=== PATIENT | male | born 1950 | race Asian ===

== ENCOUNTER 2018-04-06 08:09 | Inpatient (IN) | payer OTHER, MEDICARE ==
[~2018-04-06] VITALS: Ht 167.6 cm; Wt 67.3 kg
[2018-04-06] VITALS (9 sets, daily range): BP systolic 67–114; BP diastolic 17–59
[~2018-04-06 08:09] MED LIST: ACET-1757 PO; AMLO-150 PO; CALC0.5C9 PO; CALC667T PO; CARV6.2512 PO; CEFT2FRO2 IV; DAPT500V6 IV; ERGO500017 PO; ERGO500047 PO; GABA-826 PO; GLYB5TAB3 PO; GUAI5LIQ3 PO; HYDR20VI3 IV; INSU100C5 SQ-INSULIN; INSU100V13 SC; LABE5VIA13 IV; LISI-170 PO; LOPE2CAP PO; LOSA25TA6 PO; LOSA50TA7 PO; ONDA4SOL IV; OXYC5CAP2 PO; PANT40TA5 PO; POLY17PO5 PO; POTASSIUM ACETATE PO; SEVE800T7 PO; SODI650T PO; TRAM50TA2 PO; VANC1VIA3 IV; VERA180C2 PO; [UNRECOGNIZED DRUG - CODE] SC
[2018-04-06] MEDS ORDERED: PANTOPRAZOLE 80 MG in SODIUM CHLORIDE 0.9% 50 ML IVPB ONE (08:48)
[2018-04-06] MEDS ORDERED: SODIUM CHLORIDE FLUSH 10ML SYR IVF ONE (09:00)
[2018-04-06 09:17] LABS: ALANINE AMINOTRANSFERASE 16 U/L (12-78); ALBUMIN 1.9 g/dL (3.4-5.0); ANION GAP 8 mmol/L (5-15); CALCIUM 7.2 mg/dL (8.5-10.1); CHLORIDE 99 mmol/L (98-107)
[2018-04-06 09:19] LABS: MEAN CORPUSCULAR HEMOGLOBIN 30.3 pg (27.5-34.5); MEAN CORPUSCULAR HGB CONC 33.8 g/dL (33.2-36.2); MEAN CORPUSCULAR VOLUME 89.5 fL (81-97); PLATELET COUNT 241 x10^3/uL (130-400); RED BLOOD COUNT 1.93 x10^6/uL (4.38-5.82); RED CELL DISTRIBUTION WIDTH 16.8 % (9.4-14.8)
[2018-04-06 09:20] LABS: ALKALINE PHOSPHATASE 72 U/L (45-117); BILIRUBIN,TOTAL 0.2 mg/dL (0.2-1.0); CREATININE 5.77 mg/dL (0.7-1.3); TOTAL PROTEIN 5.2 g/dL (6.4-8.2)
[2018-04-06 09:29] LABS: INTERNATIONAL NORMALIZED RATIO 1.01 (0.93-1.1); PROTHROMBIN TIME 10.7 Seconds (9.6-11.5)
[2018-04-06 09:30] LABS: BASOPHILS # (AUTO) 0.03 x10^3/uL (0-0.1); BASOPHILS % (AUTO) 0 % (0-1); EOSINOPHILS # (AUTO) 0.08 x10^3/uL (0-0.4); EOSINOPHILS % (AUTO) 1 % (1-7); LYMPHOCYTES # (AUTO) 1.34 x10^3/uL (1-3.4); LYMPHOCYTES % (AUTO) 17 % (22-44); MD SCAN; MONOCYTES # (AUTO) 0.53 x10^3/uL (0.2-0.8); MONOCYTES % (AUTO) 7 % (2-9); NEUTROPHILS # (AUTO) 6.17 x10^3/uL (1.8-6.8); NEUTROPHILS % (AUTO) 76 % (42-75)
[2018-04-06] MEDS ORDERED: LACTATED RINGERS 500 ML IVBOLUS ONE (09:30)
[2018-04-06] MEDS ORDERED: CINA90TA PO (10:27)
[2018-04-06] MEDS ORDERED: CALC400T40 PO (10:28)
[2018-04-06] MEDS ORDERED: OMNIPAQUE 350 MG/ML, 100ML BOTTLE ONE (10:49)
[2018-04-06] MEDS ORDERED: ACETAMINOPHEN 325 MG TABLET PO PRN (11:30)
[2018-04-06] MEDS ORDERED: ENALAPRILAT 1.25 MG/ML, 2ML IVPush PRN (11:30)
[2018-04-06] MEDS ORDERED: ONDANSETRON 2MG/ML, 2ML IVPush PRN (11:30)
[2018-04-06] MEDS ORDERED: ONDANSETRON ODT 4 MG PO PRN (11:30)
[2018-04-06] MEDS ORDERED: LIDOCAINE-MPF 1%, 5ML ONE (11:32)
[2018-04-06] MEDS ORDERED: FENTANYL PF 100 MCG/2ML ONE (11:40)
[2018-04-06] MEDS ORDERED: MIDAZOLAM 1 MG/ML, 5ML ONE (11:40)
[2018-04-06] MEDS ORDERED: FLUMAZENIL 0.1 MG/1 ML, 5ML ONE (11:58)
[2018-04-06] MEDS ORDERED: NALOXONE 1 MG/ML, 2ML ONE (11:58)
[2018-04-06] MEDS ORDERED: VISIPAQUE 320MG/ML, 50ML BOTTLE ONE (14:13)
[2018-04-06] MEDS ORDERED: VISIPAQUE 320 MG/ML, 150ML BOTTLE ONE (14:13)
[2018-04-06] MEDS: SODIUM CHLORIDE 0.9% 1,000 ML IV SCH ×2 (14:52→23:07)
[2018-04-06] MEDS: INSULIN REGULAR 100 UNITS/ML, 3ML VIAL SQ-INSULIN SCH ×2 (16:00→20:59)
[2018-04-06 16:32] LABS: BASOPHILS # (AUTO) 0.02 x10^3/uL (0-0.1); BASOPHILS % (AUTO) 0 % (0-1); EOSINOPHILS # (AUTO) 0.17 x10^3/uL (0-0.4); EOSINOPHILS % (AUTO) 3 % (1-7); LYMPHOCYTES # (AUTO) 1.75 x10^3/uL (1-3.4); LYMPHOCYTES % (AUTO) 25 % (22-44); MD SCAN; MEAN CORPUSCULAR HEMOGLOBIN 31.9 pg (27.5-34.5); MEAN CORPUSCULAR HGB CONC 34.6 g/dL (33.2-36.2); MEAN CORPUSCULAR VOLUME 92.2 fL (81-97); MEAN PLATELET VOLUME 7.3 fL (7.4-10.4); MONOCYTES # (AUTO) 0.79 x10^3/uL (0.2-0.8); MONOCYTES % (AUTO) 12 % (2-9); NEUTROPHILS # (AUTO) 4.19 x10^3/uL (1.8-6.8); NEUTROPHILS % (AUTO) 61 % (42-75); PLATELET COUNT 82 x10^3/uL (130-400); RED BLOOD COUNT 1.81 x10^6/uL (4.38-5.82); RED CELL DISTRIBUTION WIDTH 13.8 % (9.4-14.8)
[2018-04-06] MEDS ORDERED: DEXTROSE 50%, 50ML SYRINGE IVPush PRN (17:00)
[2018-04-06] MEDS ORDERED: DEXTROSE 4 GM TAB.CHEW PO PRN (17:00)
[2018-04-06] MEDS ORDERED: GLUCAGON 1 MG IM PRN (17:00)
[2018-04-06] MEDS ORDERED: SODIUM CHLORIDE 0.9%, 500ML IVBOLUS ONE ×2 (17:30→19:00)
[2018-04-06] MEDS ORDERED: PHENYLEPHRINE 20 MG in SODIUM CHLORIDE 0.9% 248 ML IV PRN (19:00)
[2018-04-06] MEDS: SODIUM CHLORIDE FLUSH 10ML SYR IVF SCH (20:54)
[2018-04-07] VITALS (7 sets, daily range): BP systolic 148–182; BP diastolic 45–99
[2018-04-07] MEDS: SODIUM CHLORIDE 0.9% 1,000 ML IV SCH ×2 (05:10→17:28)
[2018-04-07] MEDS: INSULIN REGULAR 100 UNITS/ML, 3ML VIAL SQ-INSULIN SCH ×4 (07:00→21:00)
[2018-04-07 07:28] LABS: ALANINE AMINOTRANSFERASE 10 U/L (12-78); ALBUMIN 1.5 g/dL (3.4-5.0); ANION GAP 9 mmol/L (5-15); CALCIUM 6.8 mg/dL (8.5-10.1); CHLORIDE 107 mmol/L (98-107); CREATININE 6.63 mg/dL (0.7-1.3)
[2018-04-07] MEDS ORDERED: PANTOPROZOLE 40MG TABLET PO SCH (07:30)
[2018-04-07 07:31] LABS: ALKALINE PHOSPHATASE 49 U/L (45-117); BILIRUBIN,TOTAL 0.3 mg/dL (0.2-1.0); TOTAL PROTEIN 3.9 g/dL (6.4-8.2)
[2018-04-07 07:38] LABS: MEAN CORPUSCULAR HGB CONC 35.1 g/dL (33.2-36.2); MEAN CORPUSCULAR VOLUME 88.4 fL (81-97); MEAN PLATELET VOLUME 8.6 fL (7.4-10.4); PLATELET COUNT 73 x10^3/uL (130-400); RED BLOOD COUNT 2.54 x10^6/uL (4.38-5.82); RED CELL DISTRIBUTION WIDTH 15.7 % (9.4-14.8)
[2018-04-07 07:40] LABS: HEMOGRAM NOTE RECHECKED
[2018-04-07 07:45] LABS: BASOPHILS # (AUTO) 0.05 x10^3/uL (0-0.1); BASOPHILS % (AUTO) 1 % (0-1); EOSINOPHILS % (AUTO) 1 % (1-7); LYMPHOCYTES % (AUTO) 16 % (22-44); MD SCAN; MONOCYTES # (AUTO) 1.08 x10^3/uL (0.2-0.8); MONOCYTES % (AUTO) 11 % (2-9); NEUTROPHILS # (AUTO) 7.46 x10^3/uL (1.8-6.8); NEUTROPHILS % (AUTO) 73 % (42-75)
[2018-04-07] MEDS: SODIUM CHLORIDE FLUSH 10ML SYR IVF SCH ×2 (09:00→21:00)
[2018-04-07] MEDS ORDERED: PANTOPRAZOLE 40 MG IV IVPush SCH (09:00)
[2018-04-07] MEDS ORDERED: MAGNESIUM SULFATE PMX 2GM/50ML 50 ML IV ONE (13:30)
[2018-04-08] VITALS (8 sets, daily range): BP systolic 149–184; BP diastolic 47–65
[2018-04-08 03:27] LABS: ALBUMIN 1.6 g/dL (3.4-5.0); ANION GAP 7 mmol/L (5-15); CALCIUM 7.4 mg/dL (8.5-10.1); CHLORIDE 105 mmol/L (98-107); CREATININE 4.63 mg/dL (0.7-1.3)
[2018-04-08] MEDS: INSULIN REGULAR 100 UNITS/ML, 3ML VIAL SQ-INSULIN SCH ×4 (06:58→20:16)
[2018-04-08] MEDS ORDERED: MAGNESIUM SULFATE 1 GM in SODIUM CHLORIDE 0.9% 50 ML IV ONE (07:30)
[2018-04-08] MEDS: SODIUM CHLORIDE FLUSH 10ML SYR IVF SCH ×2 (09:12→20:17)
[2018-04-08] MEDS: METOPROLOL TARTRATE 25 MG TABLET PO SCH ×2 (09:12→17:43)
[2018-04-08] MEDS: PANTOPRAZOLE 40 MG IV IVPush SCH ×2 (09:13→20:17)
[2018-04-09 01:18] VITALS: BP 134/71
[2018-04-09 01:21] VITALS: BP 135/79
[2018-04-09] MEDS: METOPROLOL TARTRATE 25 MG TABLET PO SCH (05:45)
[2018-04-09 06:10] VITALS: BP 143/66
[2018-04-09] MEDS: INSULIN REGULAR 100 UNITS/ML, 3ML VIAL SQ-INSULIN SCH ×3 (07:00→16:00)
[2018-04-09] MEDS: PANTOPRAZOLE 40 MG IV IVPush SCH (08:30)
[2018-04-09] MEDS: SODIUM CHLORIDE FLUSH 10ML SYR IVF SCH (08:31)
[2018-04-09] MEDS ORDERED: MIDAZOLAM 1 MG/ML, 2ML ONE (09:37)
[2018-04-09] MEDS ORDERED: FENTANYL PF 100 MCG/2ML ONE (09:37)
[2018-04-09] MEDS ORDERED: PROPOFOL 50 ML ONE (09:38)
[2018-04-09] MEDS ORDERED: HALOPERIDOL 5 MG/ML IV PRN (11:00)
[2018-04-09] MEDS ORDERED: PROMETHAZINE 25 MG/ML, 1ML IV PRN (11:00)
[2018-04-09] MEDS ORDERED: MEPERIDINE/PF 25MG/0.5ML IVPush PRN (11:00)
[2018-04-09] MEDS ORDERED: OXYcodone 5 MG/5 ML ORAL.SOL UDC PO PRN (11:00)
[2018-04-09] MEDS ORDERED: FENTANYL PF 100 MCG/2ML IV PRN (11:00)
[2018-04-09] MEDS ORDERED: HYDROmorphone 2 MG/ML, 1ML IVPush PRN (11:00)
[2018-04-09] MEDS ORDERED: hydrALAzine 20 MG/ML, 1ML IV PRN (11:00)
[2018-04-09] MEDS ORDERED: ACETAMINOPHEN 325 MG TABLET PO PRN (11:00)
[2018-04-09] MEDS ORDERED: PANT40TA5 PO (12:08)
[2018-04-09 15:51] VITALS: BP 135/62
== END 2018-04-09 17:27 | disposition home or self-care (01) | DRG 270 ==
LOC: ED 10:22 → EDIP 11:28 → CCU 14:26 → 3NE 04-08 11:09
PROVIDERS: ADMIT Family Medicine; ATTEND Family Medicine
PROC: 04L33DZ Occlusion of Hepatic Artery with Intraluminal Device, Percutaneous Approach (ICD-10-PCS; 2018-04-06)
PROC: 04L53DZ Occlusion of Superior Mesenteric Artery with Intraluminal Device, Percutaneous Approach (ICD-10-PCS; 2018-04-06)
PROC: 30233N1 Transfusion of Nonautologous Red Blood Cells into Peripheral Vein, Percutaneous Approach (ICD-10-PCS; 2018-04-06)
PROC: B31P1ZZ Fluoroscopy of Thoraco-Abdominal Aorta using Low Osmolar Contrast (ICD-10-PCS; 2018-04-06)
PROC: 05H533Z Insertion of Infusion Device into Right Subclavian Vein, Percutaneous Approach (ICD-10-PCS; 2018-04-07)
PROC: B546ZZA Ultrasonography of Right Subclavian Vein, Guidance (ICD-10-PCS; 2018-04-07)
PROC: 5A1D70Z Performance of Urinary Filtration, Intermittent, Less than 6 Hours Per Day (ICD-10-PCS; 2018-04-07)
PROC: 5A1D70Z Performance of Urinary Filtration, Intermittent, Less than 6 Hours Per Day (ICD-10-PCS; 2018-04-08)
PROC: 0DB68ZX Excision of Stomach, Via Natural or Artificial Opening Endoscopic, Diagnostic (ICD-10-PCS; principal; 2018-04-09 10:00)
DX: R58 Hemorrhage, not elsewhere classified (principal); K29.81 Duodenitis with bleeding; N18.6 End stage renal disease; R57.8 Other shock; K25.4 Chronic or unspecified gastric ulcer with hemorrhage; D62 Acute posthemorrhagic anemia; I12.0 Hypertensive chronic kidney disease with stage 5 chronic kidney disease or end stage renal disease; E11.42 Type 2 diabetes mellitus with diabetic polyneuropathy; E11.22 Type 2 diabetes mellitus with diabetic chronic kidney disease; E78.5 Hyperlipidemia, unspecified; E87.5 Hyperkalemia; Z87.891 Personal history of nicotine dependence; I95.3 Hypotension of hemodialysis; N25.0 Renal osteodystrophy; Z99.2 Dependence on renal dialysis; Z88.6 Allergy status to analgesic agent; Z88.4 Allergy status to anesthetic agent; Z88.8 Allergy status to other drugs, medicaments and biological substances
CPT/HCPCS: 36246; 36415; 36430; 36569; 37244; 71045; 74174; 75726; 76937; 77001; 80053; 80069; 82962; 83605; 83735; 84100; 85014; 85018; 85025; 85610; 85730; 86705; 86706; 86850; 86900; 86923; 87081; 87340; 88305; 93005; 96365; 99156; 99157; 99292; G0378; J1815; J2250; J2704; J3010; J3475; J7120; Q9967; C1751; C1760; C1769; C9113; J2310; J2370; J7030; J7040; J7050; P9016

== ENCOUNTER 2019-07-15 20:34 | Inpatient (IN) | payer MEDICARE, OTHER ==
[~2019-07-15] VITALS: Ht 167.6 cm; Wt 54.5 kg
[~2019-07-15 20:34] MED LIST changes: -ACET-1757 PO; +ACET-2065 PO; +CALC400T40 PO; -CALC667T PO; +CALC667T4 PO; +CINA90TA PO; +LOSA25TA25 PO; -LOSA25TA6 PO; +LOSA50TA14 PO; -LOSA50TA7 PO
--- NOTE | 2019-07-15 20:44 | NUR ---
: josse [phone] H, C son: [phone]
[2019-07-15] MEDS ORDERED: SEVE800T8 PO (20:49)
[2019-07-15] MEDS ORDERED: ERGO500017 PO (20:49)
[2019-07-15] MEDS ORDERED: PANT40TA5 PO (20:49)
[2019-07-15] MEDS ORDERED: AMLO10TA8 PO (20:49)
[2019-07-15] MEDS ORDERED: GLYB5TAB3 PO (20:49)
[2019-07-15] MEDS ORDERED: PROPOFOL 100 ML IV ONE (20:49)
[2019-07-15] MEDS ORDERED: GABA300C10 PO (20:49)
[2019-07-15] MEDS ORDERED: PROPOFOL 10 MG/ML, 20ML ONE (20:49)
--- NOTE | 2019-07-15 21:08 | NUR ---
SUMMARY NOTE: ON ARRIVAL PT. ON CPAP. O2 SAT REMAINED IN THE 80'S. DR. GOODSON IN TO INTUBATE. 20MG ETOMIDATE FOLLOWED BY 50MG ANTELMO ADMIN AT 2052. INTUBATED WITH 8.0 AT 2053 24 AT THE LIP. VENT SETTINGS A/C RATE 20, TV 500, PEEP 10, 100%. EQUAL BREATH SOUNDS BILAT. CO2 24. EKG DONE ON ARRIVAL AND ALL MONITORS WERE PLACED. PT. HAD EJ TO RIGHT NECK ON ARRIVAL. NITRO PASTE IN PLACE TO LEFT CHEST ON ARRIVAL.
[2019-07-15] MEDS ORDERED: ETOMIDATE 20 MG/10 ML IVPush ONE (21:30)
[2019-07-15] MEDS ORDERED: PROPOFOL 100 ML IV PRN (21:30)
[2019-07-15] MEDS ORDERED: ROCURONIUM 10 MG/ML,10ML IVPush ONE (21:30)
--- NOTE | 2019-07-15 21:39 | NUR ---
X-RAY HAS BEEN COMPLETED. LOPEZ IN PLACE. PT. LIKELY ANURIC/ NO DRAINAGE WHEN PLACING LOPEZ. 2ND IV ESTABLISHED. 1 SET OF BLOOD CULTURES AND LABS DRAWN.
--- NOTE | 2019-07-15 21:41 | NUR ---
VERO TORREZ AND NEISHA ANTONIO ASSISTING IN PT. CARE.
[2019-07-15] MEDS ORDERED: ACETAMINOPHEN 500 MG TABLET PO PRN (22:00)
[2019-07-15] MEDS ORDERED: PIPERACILLIN/TAZO/PMX 3.375GM 50 ML IVPB ONE (22:00)
[2019-07-15] MEDS ORDERED: VANCOMYCIN PER PHARMACY MC ONE (22:00)
[2019-07-15] MEDS ORDERED: PIPERACILLIN/TAZO/PMX 3.375GM 50 ML ONE (22:04)
[2019-07-15] MEDS ORDERED: ACETAMINOPHEN 500 MG TABLET ONE (22:04)
[2019-07-15 22:20] LABS: ALANINE AMINOTRANSFERASE 79 U/L (12-78); ALBUMIN 3.2 g/dL (3.4-5.0); ANION GAP 15 mmol/L (5-15); CALCIUM 8.8 mg/dL (8.5-10.1); CHLORIDE 95 mmol/L (98-107)
[2019-07-15 22:21] LABS: BASOPHILS % (AUTO) 0 % (0-1); EOSINOPHILS % (AUTO) 0 % (1-7); LYMPHOCYTES % (AUTO) 8 % (22-44); MD NO; MEAN CORPUSCULAR HEMOGLOBIN 27.1 pg (27.5-34.5); MEAN CORPUSCULAR HGB CONC 32.5 g/dL (33.2-36.2); MEAN CORPUSCULAR VOLUME 83.5 fL (81-97); MEAN PLATELET VOLUME 7.7 fL (7.4-10.4); MONOCYTES % (AUTO) 5 % (2-9); NEUTROPHILS # (AUTO) 6.85 x10^3/uL (1.8-6.8); NEUTROPHILS % (AUTO) 87 % (42-75); PLATELET COUNT 219 x10^3/uL (130-400); RED BLOOD COUNT 4.27 x10^6/uL (4.38-5.82); RED CELL DISTRIBUTION WIDTH 16.2 % (9.4-14.8)
[2019-07-15 22:24] LABS: ALKALINE PHOSPHATASE 71 U/L (45-117); BILIRUBIN,TOTAL 0.3 mg/dL (0.2-1.0); TOTAL PROTEIN 8.6 g/dL (6.4-8.2)
--- NOTE | 2019-07-15 22:25 | NUR ---
UNABLE TO OBTAIN 2ND SET OF BLOOD CULTURES AFTER MULTIPLE ATTEMPTS. LAB AT NOW FOR BLOOD DRAW.
--- NOTE | 2019-07-15 22:26 | NUR ---
LATE ENTRY: WHEN PT. B/P FOUND TO BE MUCH LOWER THAN PREVIOUS READING NITRO PASTE WAS WIPED AWAY FROM SKIN.
[2019-07-15] MEDS ORDERED: VANCOMYCIN 1,200 MG in SODIUM CHLORIDE 0.9% 250 ML IV ONE (22:30)
--- NOTE | 2019-07-15 22:32 | NUR ---
LAB COMPLETED 2ND SET OF BLOOD CULTURES.
--- NOTE | 2019-07-15 22:33 | NUR ---
, Belinda, called and requested to be updated at home phone number [phone].
[2019-07-15] MEDS ORDERED: MIDAZOLAM HCL 50 MG in SODIUM CHLORIDE 0.9% 40 ML IV PRN (22:36)
[2019-07-15] MEDS ORDERED: SODIUM CHLORIDE 0.9% 1,000ML IVBOLUS ONE (23:00)
--- NOTE | 2019-07-15 23:05 | NUR ---
PER DOMINGO IN PHARMACY OK TO RUN DINAH TOGETHER.
--- NOTE | 2019-07-15 23:20 | NUR ---
UNR AT BS TO EVAL PT. FOR ADMISSION.
--- NOTE | 2019-07-15 23:49 | NUR ---
DISCUSSED B/P WITH DR. GOODSON. PT. IS NOW OFF PROPOFOL AND ON VERSED DRIP ONLY. FOR NOW WILL CONTINUE TO MONITOR B/P FOR IMPROVMENT.
[2019-07-16] MEDS ORDERED: HYDROmorphone 2 MG/ML, 1ML IVPush PRN
[2019-07-16] MEDS ORDERED: MIDAZOLAM 1 MG/ML, 2ML IVPush ONE
[2019-07-16] MEDS ORDERED: VANCOMYCIN PER PHARMACY MC PRN
[2019-07-16] MEDS ORDERED: ONDANSETRON 2MG/ML, 2ML IVPush PRN
[2019-07-16] MEDS ORDERED: BISACODYL 10 MG SUPP PR PRN
--- NOTE | 2019-07-16 00:14 | NUR ---
B/P IMPROVED CHARTED. VENT SETTING ARE A/C RATE 20, PEEP 10, TV 500, O2 70%. ALL SAFETY MEASURES OBSERVED.
[2019-07-16] MEDS: PIPERACILLIN/TAZO/PMX 3.375GM 50 ML IV SCH ×2 (00:16→05:44)
[2019-07-16] MEDS ORDERED: GLUCAGON 1 MG IM PRN (01:00)
[2019-07-16] MEDS ORDERED: DEXTROSE 4 GM TAB.CHEW PO PRN (01:00)
[2019-07-16] MEDS ORDERED: DEXTROSE 50%, 50ML SYRINGE IVPush PRN (01:00)
[2019-07-16] MEDS ORDERED: HEPARIN 5,000 UNITS/ML, 1ML ONE (01:02)
[2019-07-16] MEDS: INSULIN LISPRO 100 UNITS/ML, PEN SQ-INSULIN SCH ×5 (01:12→21:00)
[2019-07-16] MEDS: HEPARIN 5,000 UNITS/ML, 1ML SQ SCH ×3 (01:12→16:31)
[2019-07-16 02:28] LABS: BASOPHILS # (AUTO) 0.02 x10^3/uL (0-0.1); BASOPHILS % (AUTO) 1 % (0-1); EOSINOPHILS % (AUTO) 0 % (1-7); LYMPHOCYTES # (AUTO) 0.82 x10^3/uL (1-3.4); LYMPHOCYTES % (AUTO) 15 % (22-44); MD NO; MEAN CORPUSCULAR HEMOGLOBIN 27.4 pg (27.5-34.5); MEAN CORPUSCULAR HGB CONC 33.1 g/dL (33.2-36.2); MEAN CORPUSCULAR VOLUME 82.8 fL (81-97); MEAN PLATELET VOLUME 7.3 fL (7.4-10.4); MONOCYTES # (AUTO) 0.37 x10^3/uL (0.2-0.8); MONOCYTES % (AUTO) 7 % (2-9); NEUTROPHILS # (AUTO) 4.21 x10^3/uL (1.8-6.8); NEUTROPHILS % (AUTO) 78 % (42-75); PLATELET COUNT 181 x10^3/uL (130-400); RED BLOOD COUNT 4.05 x10^6/uL (4.38-5.82); RED CELL DISTRIBUTION WIDTH 15.9 % (9.4-14.8)
[2019-07-16 02:34] LABS: ALANINE AMINOTRANSFERASE 86 U/L (12-78); ALBUMIN 2.8 g/dL (3.4-5.0); ANION GAP 9 mmol/L (5-15); CALCIUM 8.1 mg/dL (8.5-10.1); CHLORIDE 100 mmol/L (98-107)
[2019-07-16 02:36] LABS: ALKALINE PHOSPHATASE 58 U/L (45-117); BILIRUBIN,TOTAL 0.3 mg/dL (0.2-1.0); TOTAL PROTEIN 7.7 g/dL (6.4-8.2)
--- NOTE | 2019-07-16 03:42 | NUR ---
VS UPDATED. ALL SAFETY MEASURES OBSERVED. VENT SETTING REMAIN THE SAME PREVIOUSLY CHARTED. SEDATION MEDS PER eMAR.
[2019-07-16] MEDS ORDERED: PHARMACOKINETIC MONITORING MC PRN (04:30)
[2019-07-16] MEDS ORDERED: PIPERACILLIN/TAZO/PMX 3.375GM 50 ML ONE (05:33)
[2019-07-16] MEDS ORDERED: PROPOFOL 100 ML IV PRN (05:34)
[2019-07-16] MEDS ORDERED: LIDOCAINE-MPF 1%, 2ML ENDO PRN (06:00)
--- NOTE | 2019-07-16 06:10 | NUR ---
PHONE CALL MADE TO DR. MCCLELLAND PT. HAS NOT HAD ANY URINE OUTPUT SINCE ARRIVAL; ALSO UPDATED DR. MCCLELLAND OF FSBS OF 66. NO NEW ORDERS AT THIS TIME.
--- NOTE | 2019-07-16 06:27 | NUR ---
REPORT TO VERO BLACKMON. FLOOR READY FOR PT. TRANPORT. RESP AWARE.
[2019-07-16] MEDS: D5%-0.9% NACL 1,000 ML IV SCH (06:30)
[2019-07-16] MEDS: SEVELAMER CARBONATE 800MG TAB PO SCH ×3 (07:56→21:00)
[2019-07-16] MEDS: SODIUM CHLORIDE FLUSH 10ML SYR IVF SCH ×2 (07:57→21:16)
[2019-07-16] MEDS ORDERED: FAMOTIDINE 20 MG/2 ML IVPush SCH (09:00)
[2019-07-16] MEDS: NOREPINEPHRINE 8 MG in SODIUM CHLORIDE 0.9% 242 ML IV PRN ×2 (10:41→22:55)
[2019-07-16 12:16] LABS: CLOSTRIDIUM DIFFICILE ANTIGEN NEGATIVE; CLOSTRIDIUM DIFFICILE TOXIN NEGATIVE (Negative)
[2019-07-16] MEDS: PIPERACILLIN/TAZO/PMX 2.25GM 50 ML IVPB SCH (16:30)
[2019-07-16] MEDS: FENTANYL PF 100 MCG/2ML IVPush PRN (16:31)
[2019-07-16] MEDS: CINACALCET 30 MG TABLET PO SCH (17:21)
[2019-07-16] MEDS: MIDAZOLAM HCL 50 MG in SODIUM CHLORIDE 0.9% 40 ML IV PRN (17:22)
[2019-07-16] MEDS ORDERED: AZITHROMYCIN 500 MG in SODIUM CHLORIDE 0.9% 250 ML IV ONE (19:00)
[2019-07-16 19:02] LABS: VANCOMYCIN,RANDOM 15.8 mcg/mL
[2019-07-16] MEDS ORDERED: VANCOMYCIN 900 MG in SODIUM CHLORIDE 0.9% 100 ML IV ONE (19:30)
[2019-07-16] MEDS: HYDROXYCHLOROQUINE 200 MG TABLET PO SCH (21:00)
[2019-07-16] MEDS: ACETAMINOPHEN 650 MG SUPP PR PRN (21:28)
[2019-07-16 22:50] VITALS: BP 109/55
[2019-07-16 22:54] VITALS: BP 109/55
[2019-07-17] MEDS: PIPERACILLIN/TAZO/PMX 2.25GM 50 ML IVPB SCH ×4 (01:09→23:42)
[2019-07-17] MEDS: HEPARIN 5,000 UNITS/ML, 1ML SQ SCH ×4 (01:09→23:43)
[2019-07-17] MEDS: MIDAZOLAM HCL 50 MG in SODIUM CHLORIDE 0.9% 40 ML IV PRN ×3 (01:23→17:36)
[2019-07-17] MEDS: INSULIN LISPRO 100 UNITS/ML, PEN SQ-INSULIN SCH ×5 (03:00→21:00)
[2019-07-17] MEDS: D5%-0.9% NACL 1,000 ML IV SCH (03:51)
[2019-07-17 04:33] VITALS: BP 116/79
[2019-07-17] MEDS: LORazepam 2 MG/ML, 1ML IVPush PRN (05:39)
[2019-07-17 08:10] LABS: MEAN CORPUSCULAR HEMOGLOBIN 26.7 pg (27.5-34.5); MEAN CORPUSCULAR VOLUME 83.3 fL (81-97); MEAN PLATELET VOLUME 7.6 fL (7.4-10.4); PLATELET COUNT 188 x10^3/uL (130-400); RED BLOOD COUNT 3.77 x10^6/uL (4.38-5.82); RED CELL DISTRIBUTION WIDTH 16.2 % (9.4-14.8)
[2019-07-17 08:16] LABS: ANION GAP 11 mmol/L (5-15); CALCIUM 8.1 mg/dL (8.5-10.1); CHLORIDE 103 mmol/L (98-107)
[2019-07-17 08:20] LABS: CREATININE 9.09 mg/dL (0.7-1.3)
[2019-07-17 08:24] LABS: ALANINE AMINOTRANSFERASE 347 U/L (12-78); ALBUMIN 2.4 g/dL (3.4-5.0)
[2019-07-17 08:26] LABS: ALKALINE PHOSPHATASE 47 U/L (45-117); BILIRUBIN,TOTAL 0.5 mg/dL (0.2-1.0); TOTAL PROTEIN 6.7 g/dL (6.4-8.2)
[2019-07-17 08:28] LABS: MD SCAN
[2019-07-17 08:29] LABS: BASOPHILS # (AUTO) 0.01 x10^3/uL (0-0.1); BASOPHILS % (AUTO) 0 % (0-1); EOSINOPHILS # (AUTO) 0.03 x10^3/uL (0-0.4); EOSINOPHILS % (AUTO) 0 % (1-7); LYMPHOCYTES # (AUTO) 0.76 x10^3/uL (1-3.4); LYMPHOCYTES % (AUTO) 12 % (22-44); MONOCYTES # (AUTO) 0.42 x10^3/uL (0.2-0.8); MONOCYTES % (AUTO) 7 % (2-9); NEUTROPHILS # (AUTO) 5.27 x10^3/uL (1.8-6.8); NEUTROPHILS % (AUTO) 81 % (42-75)
[2019-07-17] MEDS: FAMOTIDINE 20 MG/2 ML IVPush SCH (08:29)
[2019-07-17] MEDS: SODIUM CHLORIDE FLUSH 10ML SYR IVF SCH ×2 (08:29→21:00)
[2019-07-17] MEDS: SEVELAMER CARBONATE 800MG TAB PO SCH ×3 (08:29→21:00)
[2019-07-17] MEDS: HYDROXYCHLOROQUINE 200 MG TABLET PO SCH (09:40)
--- NOTE | 2019-07-17 10:31 | NUR ---
TF GOAL when ordered: Nepro @ 50ml/hr if propofol: Vital Af 1.2 @ 55ml/hr
[2019-07-17] MEDS ORDERED: hydrALAzine 20 MG/ML, 1ML ONE (14:00)
[2019-07-17] MEDS: ASPIRIN 81 MG TABLET CHEW PO SCH (14:14)
[2019-07-17] MEDS: FENTANYL PF 100 MCG/2ML IVPush PRN ×2 (14:20→21:45)
[2019-07-17] MEDS: CINACALCET 30 MG TABLET PO SCH (16:19)
[2019-07-17] MEDS: PLAQUENIL 200MG/8ML ORAL SUSP PO SCH ×2 (17:38→21:00)
[2019-07-17] MEDS: AMLODIPINE 2.5 MG TABLET PO SCH (21:00)
[2019-07-18] MEDS ORDERED: hydrALAzine 20 MG/ML, 1ML ONE (00:45)
[2019-07-18] MEDS: FENTANYL PF 100 MCG/2ML IVPush PRN ×3 (00:57→12:23)
[2019-07-18] MEDS ORDERED: hydrALAzine 20 MG/ML, 1ML IV ONE (01:00)
[2019-07-18] MEDS: INSULIN LISPRO 100 UNITS/ML, PEN SQ-INSULIN SCH ×4 (05:00→21:00)
[2019-07-18 05:08] LABS: BASOPHILS # (AUTO) 0.02 x10^3/uL (0-0.1); BASOPHILS % (AUTO) 0 % (0-1); EOSINOPHILS # (AUTO) 0.03 x10^3/uL (0-0.4); EOSINOPHILS % (AUTO) 0 % (1-7); LYMPHOCYTES # (AUTO) 0.88 x10^3/uL (1-3.4); LYMPHOCYTES % (AUTO) 14 % (22-44); MD NO; MEAN CORPUSCULAR HGB CONC 32.8 g/dL (33.2-36.2); MEAN CORPUSCULAR VOLUME 82.4 fL (81-97); MEAN PLATELET VOLUME 7.7 fL (7.4-10.4); MONOCYTES # (AUTO) 0.51 x10^3/uL (0.2-0.8); MONOCYTES % (AUTO) 8 % (2-9); NEUTROPHILS % (AUTO) 77 % (42-75); PLATELET COUNT 194 x10^3/uL (130-400); RED BLOOD COUNT 3.53 x10^6/uL (4.38-5.82); RED CELL DISTRIBUTION WIDTH 16.3 % (9.4-14.8)
[2019-07-18 05:18] LABS: ANION GAP 10 mmol/L (5-15); CALCIUM 8.2 mg/dL (8.5-10.1); CHLORIDE 105 mmol/L (98-107)
[2019-07-18 05:19] LABS: VANCOMYCIN,RANDOM 25.4 mcg/mL
[2019-07-18] MEDS: MIDAZOLAM HCL 50 MG in SODIUM CHLORIDE 0.9% 40 ML IV PRN (05:57)
[2019-07-18] MEDS: D5%-0.9% NACL 1,000 ML IV SCH (05:57)
[2019-07-18 07:16] LABS: ALBUMIN 2.2 g/dL (3.4-5.0); BILIRUBIN, DIRECT 0.1 mg/dL (0.1-0.2)
[2019-07-18 07:18] LABS: BILIRUBIN,INDIRECT 0.3 mg/dL (0.0-2.0); BILIRUBIN,TOTAL 0.4 mg/dL (0.2-1.0); TOTAL PROTEIN 6.6 g/dL (6.4-8.2)
[2019-07-18] MEDS ORDERED: HYDROXYCHLOROQUINE 200 MG TABLET ONE (09:25)
[2019-07-18] MEDS: FAMOTIDINE 20 MG/2 ML IVPush SCH (09:48)
[2019-07-18] MEDS: HEPARIN 5,000 UNITS/ML, 1ML SQ SCH ×2 (09:49→17:48)
[2019-07-18] MEDS: ASPIRIN 81 MG TABLET CHEW PO SCH (09:50)
[2019-07-18] MEDS: SODIUM CHLORIDE FLUSH 10ML SYR IVF SCH ×2 (09:50→21:06)
[2019-07-18] MEDS: SEVELAMER CARBONATE 800MG TAB PO SCH ×3 (09:51→21:01)
[2019-07-18] MEDS: PLAQUENIL 200MG/8ML ORAL SUSP PO SCH ×3 (09:56→21:01)
[2019-07-18] MEDS: AMLODIPINE 2.5 MG TABLET PO SCH (13:31)
[2019-07-18] MEDS: PIPERACILLIN/TAZO/PMX 2.25GM 50 ML IVPB SCH ×2 (13:44→21:01)
[2019-07-18] MEDS: ACETAMINOPHEN 650 MG SUPP PR PRN (15:30)
[2019-07-18 15:45] LABS: ANION GAP 11 mmol/L (5-15); CALCIUM 8.8 mg/dL (8.5-10.1); CHLORIDE 101 mmol/L (98-107); CREATININE 5.97 mg/dL (0.7-1.3)
[2019-07-18] MEDS ORDERED: POTASSIUM CHLORIDE 10% 20 MEQ/15 ML UDC PO ONE (16:00)
[2019-07-18 16:11] LABS: TROPONIN I 0.865 ng/mL (0.000-0.045)
[2019-07-18] MEDS: CINACALCET 30 MG TABLET PO SCH (17:48)
[2019-07-18] MEDS: CARVEDILOL 3.125 MG TABLET PO SCH (17:48)
[2019-07-18] MEDS: AMLODIPINE 5 MG TABLET PO SCH (21:01)
[2019-07-19] MEDS: HEPARIN 5,000 UNITS/ML, 1ML SQ SCH ×3 (01:00→15:42)
[2019-07-19] MEDS: D5%-0.9% NACL 1,000 ML IV SCH ×2 (03:08→17:01)
[2019-07-19] MEDS: PIPERACILLIN/TAZO/PMX 2.25GM 50 ML IVPB SCH ×3 (03:10→20:38)
[2019-07-19] MEDS: LORazepam 2 MG/ML, 1ML IVPush PRN ×2 (03:19→13:45)
[2019-07-19] MEDS: INSULIN LISPRO 100 UNITS/ML, PEN SQ-INSULIN SCH ×4 (03:20→21:30)
[2019-07-19 05:38] LABS: BASOPHILS # (AUTO) 0.01 x10^3/uL (0-0.1); BASOPHILS % (AUTO) 0 % (0-1); EOSINOPHILS % (AUTO) 2 % (1-7); LYMPHOCYTES # (AUTO) 0.68 x10^3/uL (1-3.4); LYMPHOCYTES % (AUTO) 13 % (22-44); MD NO; MEAN CORPUSCULAR HEMOGLOBIN 27.1 pg (27.5-34.5); MEAN CORPUSCULAR HGB CONC 32.5 g/dL (33.2-36.2); MEAN CORPUSCULAR VOLUME 83.3 fL (81-97); MEAN PLATELET VOLUME 7.5 fL (7.4-10.4); MONOCYTES # (AUTO) 0.58 x10^3/uL (0.2-0.8); MONOCYTES % (AUTO) 11 % (2-9); NEUTROPHILS # (AUTO) 3.92 x10^3/uL (1.8-6.8); NEUTROPHILS % (AUTO) 74 % (42-75); PLATELET COUNT 254 x10^3/uL (130-400); RED BLOOD COUNT 3.64 x10^6/uL (4.38-5.82); RED CELL DISTRIBUTION WIDTH 16.3 % (9.4-14.8)
[2019-07-19 05:52] LABS: ANION GAP 10 mmol/L (5-15); CALCIUM 8.6 mg/dL (8.5-10.1); CHLORIDE 103 mmol/L (98-107); CREATININE 7.91 mg/dL (0.7-1.3); TRIGLYCERIDES 185 mg/dL (50-200)
[2019-07-19] MEDS ORDERED: QUETIAPINE 25MG TABLET ONE (08:58)
[2019-07-19] MEDS: SEVELAMER CARBONATE 800MG TAB PO SCH ×3 (09:00→20:43)
[2019-07-19] MEDS: SODIUM CHLORIDE FLUSH 10ML SYR IVF SCH ×2 (09:05→20:42)
[2019-07-19] MEDS: FAMOTIDINE 20 MG/2 ML IVPush SCH (09:05)
[2019-07-19] MEDS: PLAQUENIL 200MG/8ML ORAL SUSP PO SCH ×3 (09:06→20:53)
[2019-07-19] MEDS: AMLODIPINE 5 MG TABLET PO SCH ×2 (09:06→20:42)
[2019-07-19] MEDS: ASPIRIN 81 MG TABLET CHEW PO SCH (09:06)
[2019-07-19] MEDS ORDERED: CARVEDILOL 6.25 MG TABLET ONE (09:11)
[2019-07-19] MEDS: CARVEDILOL 3.125 MG TABLET PO SCH ×2 (09:13→15:43)
[2019-07-19 13:30] VITALS: BP 138/55
[2019-07-19] MEDS: CINACALCET 30 MG TABLET PO SCH (15:43)
[2019-07-19 19:55] VITALS: BP 128/58
[2019-07-20] VITALS (7 sets, daily range): BP systolic 88–139; BP diastolic 49–72
[2019-07-20] MEDS: HEPARIN 5,000 UNITS/ML, 1ML SQ SCH ×3 (00:50→17:21)
[2019-07-20] MEDS: INSULIN LISPRO 100 UNITS/ML, PEN SQ-INSULIN SCH ×4 (03:39→20:30)
[2019-07-20] MEDS: PIPERACILLIN/TAZO/PMX 2.25GM 50 ML IVPB SCH ×3 (03:39→19:55)
[2019-07-20] MEDS: D5%-0.9% NACL 1,000 ML IV SCH (03:40)
[2019-07-20 07:04] LABS: ANION GAP 11 mmol/L (5-15); CALCIUM 9.3 mg/dL (8.5-10.1); CHLORIDE 105 mmol/L (98-107)
[2019-07-20] MEDS: CARVEDILOL 3.125 MG TABLET PO SCH ×2 (08:00→17:00)
[2019-07-20] MEDS: AMLODIPINE 5 MG TABLET PO SCH ×2 (08:37→19:54)
[2019-07-20] MEDS ORDERED: FAMOTIDINE 20 MG TABLET ONE (08:47)
[2019-07-20] MEDS: SEVELAMER CARBONATE 800MG TAB PO SCH ×3 (08:54→21:00)
[2019-07-20] MEDS: ASPIRIN 81 MG TABLET CHEW PO SCH (08:54)
[2019-07-20] MEDS: FAMOTIDINE 20 MG TABLET NG SCH (08:54)
[2019-07-20] MEDS: PLAQUENIL 200MG/8ML ORAL SUSP PO SCH ×3 (08:54→21:00)
[2019-07-20] MEDS: SODIUM CHLORIDE FLUSH 10ML SYR IVF SCH ×2 (08:55→19:55)
--- NOTE | 2019-07-20 09:17 | NUR ---
REC: D/C home with spouse; regular diet with thin liquids Addendum: 07/20/19 at 0917 by Nilam BAIRES Amended: Links added.
[2019-07-20 16:23] LABS: TROPONIN I 0.293 ng/mL (0.000-0.045)
[2019-07-20] MEDS: CINACALCET 30 MG TABLET PO SCH (16:26)
[2019-07-21] MEDS: HEPARIN 5,000 UNITS/ML, 1ML SQ SCH ×3 (00:04→16:57)
[2019-07-21 03:04] VITALS: BP 98/54
[2019-07-21] MEDS: INSULIN LISPRO 100 UNITS/ML, PEN SQ-INSULIN SCH ×5 (03:30→21:00)
[2019-07-21] MEDS: PIPERACILLIN/TAZO/PMX 2.25GM 50 ML IVPB SCH (04:15)
[2019-07-21 08:11] VITALS: BP 119/57
[2019-07-21 08:35] LABS: BASOPHILS # (AUTO) 0.02 x10^3/uL (0-0.1); BASOPHILS % (AUTO) 0 % (0-1); EOSINOPHILS # (AUTO) 0.55 x10^3/uL (0-0.4); EOSINOPHILS % (AUTO) 9 % (1-7); LYMPHOCYTES # (AUTO) 0.89 x10^3/uL (1-3.4); LYMPHOCYTES % (AUTO) 15 % (22-44); MD NO; MEAN CORPUSCULAR HEMOGLOBIN 27.8 pg (27.5-34.5); MEAN CORPUSCULAR HGB CONC 33.3 g/dL (33.2-36.2); MEAN CORPUSCULAR VOLUME 83.4 fL (81-97); MEAN PLATELET VOLUME 7.6 fL (7.4-10.4); MONOCYTES # (AUTO) 0.88 x10^3/uL (0.2-0.8); MONOCYTES % (AUTO) 15 % (2-9); NEUTROPHILS # (AUTO) 3.75 x10^3/uL (1.8-6.8); NEUTROPHILS % (AUTO) 62 % (42-75); PLATELET COUNT 332 x10^3/uL (130-400); RED BLOOD COUNT 3.77 x10^6/uL (4.38-5.82); RED CELL DISTRIBUTION WIDTH 16.2 % (9.4-14.8)
[2019-07-21 08:44] LABS: ANION GAP 11 mmol/L (5-15); CALCIUM 9.2 mg/dL (8.5-10.1); CHLORIDE 103 mmol/L (98-107); CREATININE 7.46 mg/dL (0.7-1.3)
[2019-07-21] MEDS: SEVELAMER CARBONATE 800MG TAB PO SCH ×3 (09:30→21:06)
[2019-07-21] MEDS: PLAQUENIL 200MG/8ML ORAL SUSP PO SCH ×3 (09:30→21:06)
[2019-07-21] MEDS: SODIUM CHLORIDE FLUSH 10ML SYR IVF SCH ×2 (09:30→21:07)
[2019-07-21] MEDS: FAMOTIDINE 20 MG TABLET NG SCH (09:30)
[2019-07-21] MEDS: ASPIRIN 81 MG TABLET CHEW PO SCH (09:30)
[2019-07-21 13:48] VITALS: BP 112/69
[2019-07-21] MEDS: CINACALCET 30 MG TABLET PO SCH (16:55)
[2019-07-21 21:01] VITALS: BP 131/69
[2019-07-22] MEDS: HEPARIN 5,000 UNITS/ML, 1ML SQ SCH ×3 (01:19→17:17)
[2019-07-22 01:22] VITALS: BP 141/71
[2019-07-22 06:23] LABS: ALBUMIN 2.6 g/dL (3.4-5.0); ANION GAP 12 mmol/L (5-15); CALCIUM 9.2 mg/dL (8.5-10.1); CHLORIDE 103 mmol/L (98-107)
[2019-07-22 06:24] LABS: CREATININE 9.87 mg/dL (0.7-1.3)
[2019-07-22] MEDS: INSULIN LISPRO 100 UNITS/ML, PEN SQ-INSULIN SCH ×4 (07:00→21:00)
[2019-07-22 07:57] VITALS: BP 151/70
[2019-07-22] MEDS: SODIUM CHLORIDE FLUSH 10ML SYR IVF SCH ×2 (09:00→21:39)
[2019-07-22] MEDS: HYDROXYCHLOROQUINE 200 MG TABLET PO SCH ×2 (09:34→21:05)
[2019-07-22] MEDS: SEVELAMER CARBONATE 800MG TAB PO SCH ×3 (09:34→21:05)
[2019-07-22] MEDS: FAMOTIDINE 20 MG TABLET NG SCH (09:35)
[2019-07-22 15:00] VITALS: BP 103/55
[2019-07-22] MEDS: CINACALCET 30 MG TABLET PO SCH (17:18)
[2019-07-22] MEDS: ASPIRIN 81 MG TABLET CHEW PO SCH (17:18)
[2019-07-22 20:15] VITALS: BP 127/54
[2019-07-23] MEDS: HEPARIN 5,000 UNITS/ML, 1ML SQ SCH ×2 (00:58→08:10)
[2019-07-23 02:11] VITALS: BP 137/43
[2019-07-23 05:55] LABS: MEAN CORPUSCULAR HEMOGLOBIN 28.6 pg (27.5-34.5); MEAN CORPUSCULAR HGB CONC 33.9 g/dL (33.2-36.2); MEAN CORPUSCULAR VOLUME 84.4 fL (81-97); MEAN PLATELET VOLUME 7.2 fL (7.4-10.4); PLATELET COUNT 474 x10^3/uL (130-400); RED BLOOD COUNT 3.51 x10^6/uL (4.38-5.82); RED CELL DISTRIBUTION WIDTH 16.4 % (9.4-14.8)
[2019-07-23 06:04] LABS: ALBUMIN 2.7 g/dL (3.4-5.0); ANION GAP 10 mmol/L (5-15); CALCIUM 8.8 mg/dL (8.5-10.1); CHLORIDE 102 mmol/L (98-107)
[2019-07-23 06:06] LABS: CREATININE 6.97 mg/dL (0.7-1.3)
[2019-07-23 06:16] LABS: BASOPHILS # (AUTO) 0.01 x10^3/uL (0-0.1); BASOPHILS % (AUTO) 0 % (0-1); EOSINOPHILS # (AUTO) 0.77 x10^3/uL (0-0.4); EOSINOPHILS % (AUTO) 8 % (1-7); LYMPHOCYTES # (AUTO) 1.86 x10^3/uL (1-3.4); LYMPHOCYTES % (AUTO) 20 % (22-44); MD SCAN; MONOCYTES % (AUTO) 18 % (2-9); NEUTROPHILS # (AUTO) 4.99 x10^3/uL (1.8-6.8); NEUTROPHILS % (AUTO) 54 % (42-75)
[2019-07-23] MEDS: INSULIN LISPRO 100 UNITS/ML, PEN SQ-INSULIN SCH ×2 (07:37→11:56)
[2019-07-23 08:00] VITALS: BP 130/56
[2019-07-23] MEDS: HYDROXYCHLOROQUINE 200 MG TABLET PO SCH (08:10)
[2019-07-23] MEDS: ASPIRIN 81 MG TABLET CHEW PO SCH (08:10)
[2019-07-23] MEDS: SODIUM CHLORIDE FLUSH 10ML SYR IVF SCH (08:10)
[2019-07-23] MEDS: SEVELAMER CARBONATE 800MG TAB PO SCH (08:10)
[2019-07-23] MEDS ORDERED: HYDR200T5 PO ×2 (11:33)
[2019-07-23] MEDS ORDERED: ASPI-515 PO (11:33)
[2019-07-24] MEDS ORDERED: FAMOTIDINE 20 MG TABLET NG SCH (13:00)
== END 2019-07-23 16:32 | disposition home or self-care (01) | DRG 871 ==
LOC: EDBD 20:34 → ED 21:13 → MERGE 21:13 → EDIP 23:53 → ICU 07-16 06:50 → 3WST 07-19 13:07 → 3E 07-21 10:01 → 3WST 07-22 10:53
PROVIDERS: ADMIT Family Medicine; ATTEND Hospitalist
PROC: 5A1945Z Respiratory Ventilation, 24-96 Consecutive Hours (ICD-10-PCS; principal; 2019-07-15)
PROC: 0BH17EZ Insertion of Endotracheal Airway into Trachea, Via Natural or Artificial Opening (ICD-10-PCS; 2019-07-15)
PROC: 5A1D70Z Performance of Urinary Filtration, Intermittent, Less than 6 Hours Per Day (ICD-10-PCS; 2019-07-16)
PROC: 5A1D70Z Performance of Urinary Filtration, Intermittent, Less than 6 Hours Per Day (ICD-10-PCS; 2019-07-18)
PROC: 5A1D70Z Performance of Urinary Filtration, Intermittent, Less than 6 Hours Per Day (ICD-10-PCS; 2019-07-20)
PROC: 5A1D70Z Performance of Urinary Filtration, Intermittent, Less than 6 Hours Per Day (ICD-10-PCS; 2019-07-22)
DX: A41.89 Other specified sepsis (principal); U07.1 COVID-19; N18.6 End stage renal disease; R65.21 Severe sepsis with septic shock; J96.01 Acute respiratory failure with hypoxia; J12.89 Other viral pneumonia; I50.31 Acute diastolic (congestive) heart failure; E87.1 Hypo-osmolality and hyponatremia; I13.2 Hypertensive heart and chronic kidney disease with heart failure and with stage 5 chronic kidney disease, or end stage renal disease; K81.0 Acute cholecystitis; N25.0 Renal osteodystrophy; D63.1 Anemia in chronic kidney disease; E87.5 Hyperkalemia; E11.649 Type 2 diabetes mellitus with hypoglycemia without coma; R79.89 Other specified abnormal findings of blood chemistry; E11.21 Type 2 diabetes mellitus with diabetic nephropathy; E11.22 Type 2 diabetes mellitus with diabetic chronic kidney disease; Y95 Nosocomial condition; Z78.9 Other specified health status; Z87.11 Personal history of peptic ulcer disease; Z87.891 Personal history of nicotine dependence; Z99.2 Dependence on renal dialysis
CPT/HCPCS: 31500; 36415; 36600; 71045; 74018; 76705; 80048; 80053; 80069; 80074; 80076; 80202; 82803; 82962; 83605; 83615; 83735; 83880; 84100; 84145; 84478; 84484; 85025; 86140; 86706; 87040; 87070; 87081; 87205; 87324; 87340; 90935; 93005; 94002; 94003; 94150; 96365; 96375; G0378; J0456; J1170; J1644; J2250; J2543; J2704; J3010; J3370; J7042; J0360; J1815; J2060; J3490; J7030; J7050